=== PATIENT | male | born 1990 | race African-American/Black ===

== ENCOUNTER 2016-09-03 20:53 | Emergency (ER) | payer MEDICAID ==
[2016-09-03 21:09] VITALS: BP 131/92
--- NOTE | 2016-09-03 21:13 | EDM.PDOC ---
ED HPI GENERAL MEDICAL PROBLEM - General Chief Complaint: Genitourinary Problem Stated Complaint: POSS STD INFECTION Time Seen by Provider: 09/03/16 21:13 Source of Information: Reports: Patient History Limitations: Reports: No Limitations - History of Present Illness INITIAL COMMENTS - FREE TEXT/NARRATIVE: 24-year-old male presents the ED with pain in the shaft and glans penis. She had intercourse with a woman about a week ago. States quite a bit of chafing occurred during intercourse and he had pain in this area since that time. Pain however is getting worse and tonight he noticed pain in the urethral meatus with voiding. Certainly may have picked up an STD. He is circumcised. Initial intercourse was last August 25 he feels that the initial chafing and irritation may not have healed and was aggravated by second intercourse. Today he developed more urethritis discomfort and cloudy looking urine.. Second intercourse was August 30. Onset: Gradual Onset Date: 08/26/16 (InitiaInitial onset of sores on penis.) Duration: Day(s):, Constant, Getting Worse Location: Reports: Other Quality: Reports: Burning, Stabbing Severity: Mild Improves with: Reports: None Worsens with: Reports: Other Context: Reports: Activity (Recurrent intercourse). Denies: Exercise, Lifting, Sick Contact, Trauma, Other Associated Symptoms: Reports: Other (Today develop some mild burning with voiding. Note the urine was slightly cloudy as well.) Treatments DIET KITCHEN COOK: Reports: Other (see below) (None.) Penis Pain Score (Numeric/FACES): 6 - Related Data Allergies Allergy/AdvReac Type Severity Reaction Status Date / Time diphenhydramine Allergy Rash Verified 09/03/16 21:09 [From Benadryl] Home Meds: Home Meds Azithromycin [Zithromax] 1 gm PO DAILY #1 packet 09/03/16 [Rx] Doxycycline [Vibramycin] 100 mg PO Q12HR #20 cap 09/03/16 [Rx] Mupirocin Oint [Bactroban Oint] 22 gm TOP BID #1 tube 09/03/16 [Rx] Past Medical History - Past Health History Medical/Surgical History: Denies Medical/Surgical History Social & Family History - Tobacco Use Smoking Status *Q: Never Smoker Second Hand Smoke Exposure: No - Caffeine Use Caffeine Use: Reports: Soda - Alcohol Use Days Per Week of Alcohol Use: 3 Number of Drinks Per Day: 4 Total Drinks Per Week: 12 - Recreational Drug Use Recreational Drug Use: No - Living Situation & Occupation Living situation: Reports: Single Occupation: Employed ED ROS GENERAL - Review of Systems Review Of Systems: See Below Constitutional: Reports: No Symptoms HEENT: Reports: No Symptoms Respiratory: Reports: No Symptoms Cardiovascular: Reports: No Symptoms Endocrine: Reports: No Symptoms GI/Abdominal: Reports: No Symptoms : Reports: Other (Mild dysuria and discomfort in the urethral meatus. Sores on the shaft of the distal penis.) Musculoskeletal: Reports: No Symptoms Neurological: Reports: No Symptoms ED EXAM, RENAL/ - Physical Exam Exam: See Below Exam Limited By: No Limitations General Appearance: Alert, WD/WN, No Apparent Distress (Male) Exam: Other (Patient does have cloudy looking urine with slight irritation of the urethral meatus. The glans of the penis is normal. The shaft of the distal penis dorsally particularly has 3 or 4 lesions which I believe are probably teeth blandon or waking from teeth. Do not resemble chancroid or syphilis. They're mildly tender. There is no cellulitis.) Course - Vital Signs Last Recorded V/S: Last Vital Signs Temp 37.2 C 09/03/16 21:03 Pulse 85 09/03/16 21:03 Resp 16 09/03/16 21:03 BP 131/92 H 09/03/16 21:03 Pulse Ox 98 09/03/16 21:03 - Orders/Labs/Meds Labs: Laboratory Tests 09/03/16 Range/Units 21:25 C trachomatis DNA (PCR) Not detected N gonorrhoeae DNA (PCR) Not detected - Radiology Interpretation Free Text/Narrative:: 25-year-old male presents the ED with some mild dysuria and early urethritis after sexual intercourse with a essentially new girlfriend. He's been with her twice in the last week. Developed sores on the shaft of his penis which she relates was secondary to vaginal dryness and chafing of the penis. Worse after second intercourse 4 days ago. The sores are not expanding in size and there is no discharge. Developed a urethritis-like symptoms with some dysuria tonight. He looking urine noted. Plan urine to be collected for chlamydia and gonorrhea check. And urinalysis. I will place him on antibiotic doxycycline 100 mg twice daily for 10 days to clear up chlamydia and 1 g of azithromycin for gonorrhea clear. Phone the patient with results once his urinalysis becomes available. The nail shaft will have fast Trabant ointment applied to twice daily until the source heal. I believe the sores are secondary to waking from teeth during oral intercourse. - Re-Assessments/Exams Free Text/Narrative Re-Assessment/Exam: 09/04/16 00:21 urine tested for gonorrhea and chlamydia is negative. Patient was found and formed of the results. Departure - Departure Time of Disposition: 21:36 Disposition: Home, Self-Care 01 Condition: Fair Clinical Impression: Urethritis, Wound infection - Discharge Information Prescriptions: Doxycycline [Vibramycin] 100 mg PO Q12HR #20 cap Azithromycin [Zithromax] 1 gm PO DAILY #1 packet Mupirocin Oint [Bactroban Oint] 22 gm TOP BID #1 tube Referrals: PCP,None [Primary Care Provider] - Forms: ED Department Discharge Additional Instructions: Evaluation in the emergency room today in regards to skin sores that have developed on the shaft of the glans penis. These appear to be secondarily infected wounds either from skin chafing or teeth raking. There also appears to be a development of urethritis which means slight irritation when voiding at the end of the penis suggestive of developing infection. Urine has been collected for analysis including gonorrhea and chlamydia and I will call you with results when this becomes available. In the meantime suggest treatment with doxycycline 100 mg twice daily for 10 days and Zithromax 1 g taken once to clear up any potential infections. Suggest use of Bactroban ointment to the affected area of the glans penis twice daily morning and bedtime until the rash clears should be much improved in 4-5 days. Follow-up if not markedly improved in that timeframe.
[2016-09-03 23:13] LABS: C. TRACHOMATIS BY PCR NOT DETECTED; N. GONORRHOEAE BY PCR NOT DETECTED
== END 2016-09-03 22:09 | disposition home or self-care (01) ==
LOC: JD.ED 20:53
DX: N34.2 Other urethritis (principal); N48.29 Other inflammatory disorders of penis; Z79.2 Long term (current) use of antibiotics; Z88.8 Allergy status to other drugs, medicaments and biological substances
CPT/HCPCS: 87491; 87591; 99283

== ENCOUNTER 2016-11-20 14:51 | Emergency (ER) | payer MEDICAID ==
[2016-11-20 15:07] VITALS: BP 126/70
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
== END 2016-11-20 15:47 | disposition home or self-care (01) ==
LOC: JD.ED 14:51
DX: S06.0X0A Concussion without loss of consciousness, initial encounter (principal); S39.012A Strain of muscle, fascia and tendon of lower back, initial encounter; Z88.8 Allergy status to other drugs, medicaments and biological substances; V43.52XA Car driver injured in collision with other type car in traffic accident, initial encounter
CPT/HCPCS: 99283; 99284

== ENCOUNTER 2017-06-17 10:18 | Emergency (ER) | payer SELFPAY ==
--- NOTE | 2017-06-17 10:39 | EDM.PDOC ---
ED HPI GENERAL MEDICAL PROBLEM - General Chief Complaint: Abdominal Pain Stated Complaint: ABDOMINAL PAIN/VOMITING Time Seen by Provider: 06/17/17 10:38 Source of Information: Reports: Patient - History of Present Illness INITIAL COMMENTS - FREE TEXT/NARRATIVE: Patient is here for evaluation of abdominal pain that started on Tuesday. He states that he thought maybe he was constipated, he took MiraLAX and has had good bowel movements but not relief in the pain/fullness. Patient states that approximately 2am this morning he started with the nausea, vomiting and diarrhea simultaneously. Patient has no chronic medical conditions, no history of GI problems. Prior to early this morning he had been eating adequately. He had been doing some intermittent fasting for 16-18 hours daily for health reasons. He has been trying to drink fluids but feels that he is "not keeping up" with the diarrhea and vomiting. Denies any exposure to ill contacts specifically, though he works at the front end architect of a hotel and is in contact with many people every day. He has not traveled recently. Patient takes alcohol occasionally on a social basis. He is not a smoker. He denies any history of drug use. Abdominal Pain Score (Numeric/FACES): 8 - Related Data Allergies Allergy/AdvReac Type Severity Reaction Status Date / Time diphenhydramine Allergy Rash Verified 06/17/17 10:37 [From Benadryl] Home Meds: Home Meds Ondansetron HCl [Zofran] 4 mg PO Q8HR PRN #10 tablet 06/17/17 [Rx] Past Medical History - Past Health History Medical/Surgical History: Denies Medical/Surgical History Social & Family History - Tobacco Use Smoking Status *Q: Never Smoker Second Hand Smoke Exposure: No - Caffeine Use Caffeine Use: Reports: Soda - Alcohol Use Days Per Week of Alcohol Use: 3 Number of Drinks Per Day: 4 Total Drinks Per Week: 12 - Recreational Drug Use Recreational Drug Use: No - Living Situation & Occupation Living situation: Reports: Single Occupation: Employed ED ROS GENERAL - Review of Systems Review Of Systems: See Below Constitutional: Reports: Malaise, Weakness, Fatigue, Decreased Appetite. Denies : Fever, Chills HEENT: Reports: No Symptoms Respiratory: Reports: No Symptoms Cardiovascular: Reports: No Symptoms Endocrine: Reports: Fatigue GI/Abdominal: Reports: Abdominal Pain, Diarrhea, Decreased Appetite, Nausea, Vomiting. Denies: Hematemesis, Hematochezia : Reports: No Symptoms Musculoskeletal: Reports: No Symptoms Skin: Reports: No Symptoms Neurological: Reports: No Symptoms ED EXAM, GI/ABD - Physical Exam Exam: See Below General Appearance: Alert, WD/WN, No Apparent Distress Eyes: Bilateral: Normal Appearance Ears: Normal External Exam, Normal Canal, Normal TMs Throat/Mouth: Normal Inspection, Normal Oropharynx Head: Atraumatic, Normocephalic Neck: Normal Inspection, Supple, Non-Tender Respiratory/Chest: No Respiratory Distress, Lungs Clear, Normal Breath Sounds Cardiovascular: Normal Peripheral Pulses, Regular Rate, Rhythm, No Murmur GI/Abdominal Exam: Soft, Tender (Epigastric), Abnormal Bowel Sounds ( Hyperactive ). No: Guarding, Rigid, Rebound Neurological: Alert, Oriented Psychiatric: Normal Affect, Normal Mood Skin Exam: Warm, Dry, Intact Lymphatic: No Adenopathy Course - Vital Signs Last Recorded V/S: Last Vital Signs Temp 97.9 F 06/17/17 10:40 Pulse 84 06/17/17 10:40 Resp 18 06/17/17 10:40 BP 130/80 06/17/17 10:40 Pulse Ox 98 06/17/17 10:40 - Orders/Labs/Meds Orders: Active Orders 24 hr Category Date Time Status Abdomen 2V AP Flat Upright [CR] Stat Exams 06/17/17 12:07 Taken UA W/MICROSCOPIC [URIN] Stat Lab 06/17/17 11:23 Ordered Labs: Laboratory Tests 06/17/17 06/17/17 06/17/17 Range/Units 10:35 10:35 10:35 WBC 7.13 (4.23-9.07) K/mm3 RBC 5.70 (4.63-6.08) M/mm3 Hgb 16.3 (13.7-17.5) gm/L Hct 48.3 (40.1-51.0) % MCV 84.7 (79.0-92.2) fl MCH 28.6 (25.7-32.2) pg MCHC 33.7 (32.2-35.5) g/dl RDW Std Deviation 39.2 (35.1-43.9) fL Plt Count 207 (163-337) K/mm3 MPV 10.3 (9.4-12.3) fl Neutrophils % (Manual) 66 H (40-60) % Band Neutrophils % 2 (0-10) % Lymphocytes % (Manual) 31 (20-40) % Atypical Lymphs % 0 % Monocytes % (Manual) 0 L (2-10) % Eosinophils % (Manual) 1 (0.8-7.0) % Basophils % (Manual) 0 L (0.2-1.2) Platelet Estimate Adequate RBC Morph Comment Normal Sodium 139 (136-145) mEq/L Potassium 3.7 (3.5-5.1) mEq/L Chloride 102 (98-107) mEq/L Carbon Dioxide 28 (21-32) mEq/L Anion Gap 12.7 (5-15) BUN 16 (7-18) mg/dL Creatinine 1.1 (0.7-1.3) mg/dL Est Cr Clr Drug Dosing 123.76 mL/min Estimated GFR (MDRD) > 60 (>60) mL/min BUN/Creatinine Ratio 14.5 (14-18) Glucose 107 H (74-106) mg/dL Calcium 9.7 (8.5-10.1) mg/dL Total Bilirubin 3.0 H (0.2-1.0) mg/dL Direct Bilirubin 0.20 (0.0-0.2) mg/dl AST 18 (15-37) U/L ALT 14 L (16-63) U/L Alkaline Phosphatase 75 (46-116) U/L C-Reactive Protein 1.8 H* (<1.0) mg/dL Total Protein 8.1 (6.4-8.2) g/dl Albumin 4.5 (3.4-5.0) g/dl Globulin 3.6 gm/dL Albumin/Globulin Ratio 1.3 (1-2) Lipase 97 (73-393) U/L Meds: Medications Discontinued Medications Generic Name Dose Route Start Last Admin Trade Name Freq PRN Reason Stop Dose Admin Al Hydroxide/Mg Hydroxide 30 0 ml 06/17/17 12:07 06/17/17 12:13 ml/ Lidocaine HCl 15 ml PO 06/17/17 12:08 45 ml ONETIME ONE Administration Sodium Chloride 1,000 mls @ 999 mls/hr 06/17/17 11:24 06/17/17 11:33 Normal Saline IV 06/17/17 12:24 999 mls/hr ONETIME ONE Administration Ketorolac Tromethamine 30 mg 06/17/17 11:41 06/17/17 11:51 Toradol IVPUSH 06/17/17 11:42 30 mg ONETIME ONE Administration Metoclopramide HCl 5 mg 06/17/17 11:41 06/17/17 11:47 Reglan IVPUSH 06/17/17 11:42 5 mg ONETIME ONE Administration Ondansetron HCl 4 mg 06/17/17 11:24 06/17/17 11:33 Zofran IVPUSH 06/17/17 11:25 4 mg ONETIME ONE Administration - Re-Assessments/Exams Free Text/Narrative Re-Assessment/Exam: Patient is afebrile, mild abdominal tenderness. He is able to laugh and joke but does appear uncomfortable. Lab work ordered and will get a liter of NS started. Zofran for nausea. Patient still having some abdominal pain/nausea will give 30 mg Toradol & 5 mg Reglan. 06/17/17 11:42 Bilirubin is elevated to 3.0, will fractionate this out. Patient still having some abdominal pain will try GI cocktail and get an x-ray of the abdomen. 06/17/17 12:07 Pain improved with GI cocktail. WBC 7130, CRP is 1.8. Bilirubin elevated at 3.0 liver enzymes are normal and lipase is 97. Likely viral gastroenteritis, will discharge him home with Zofran to use as needed. He is to push fluids. Very bland diet. He'll follow-up with PCP if symptoms not improved over the next 3 days or certainly return to the emergency room if any worsening. 06/17/17 12:58 06/17/17 12:59 Departure - Departure Time of Disposition: 13:00 Disposition: Home, Self-Care 01 Condition: Good Clinical Impression: Gastroenteritis - Discharge Information Prescriptions: Ondansetron HCl [Zofran] 4 mg PO Q8HR PRN #10 tablet PRN Reason: Nausea Referrals: Gladys Coleman NOC ENGINEER [Primary Care Provider] - Forms: ED Department Discharge Additional Instructions: You were evaluated in the emergency room and diagnosed with a viral gastroenteritis. You will be discharged home with Zofran to use for nausea as needed You need to push oral fluids and stay hydrated. Try to avoid eating today, as you feel better you may advance diet. Avoid sugar/ dairy until symptoms completely resolved. Follow-up with your primary provider if her symptoms are not improved over the next 3 days or if any worsening you may certainly return to the emergency room - My Orders Last 24 Hours: My Active Orders 06/17/17 11:23 UA W/MICROSCOPIC [URIN] Stat 06/17/17 12:07 Abdomen 2V AP Flat Upright [CR] Stat - Assessment/Plan Last 24 Hours: My Active Orders 06/17/17 11:23 UA W/MICROSCOPIC [URIN] Stat 06/17/17 12:07 Abdomen 2V AP Flat Upright [CR] Stat
[2017-06-17 10:43] VITALS: BP 130/80
[2017-06-17] MEDS ORDERED: Ondansetron 4 MG/2 ML SDV IVPUSH ONE (11:24)
[2017-06-17] MEDS ORDERED: Sodium Chloride 0.9% 1,000 ML IV ONE (11:24)
[2017-06-17] MEDS ORDERED: Ketorolac 30 MG/ML SDV IVPUSH ONE (11:41)
[2017-06-17] MEDS ORDERED: Metoclopramide 10 MG/2 ML SDV IVPUSH ONE (11:41)
[2017-06-17] MEDS ORDERED: Alum Hydrox/Mag Hydrox/Simeth 30 ML, Lidocaine 2% 15 ML PO ONE ×2 (12:07)
--- NOTE | 2017-06-17 13:12 | CR ---
Abdomen: Supine and upright views of the abdomen were obtained. Comparison: Previous abdominal x-ray of 11/19/14. Bowel gas pattern appears normal. Calcifications are seen within the pelvis compatible with phleboliths. No free air is seen. Bony structures are unremarkable. Impression: 1. Incidental finding. Nothing acute is seen on two-view abdominal x-ray. Diagnostic code #2
== END 2017-06-17 14:00 | disposition home or self-care (01) ==
LOC: JD.ED 10:18
DX: K52.9 Noninfective gastroenteritis and colitis, unspecified (principal); Z88.8 Allergy status to other drugs, medicaments and biological substances
CPT/HCPCS: 36415; 74019; 80053; 81001; 82248; 83690; 85025; 86140; 96361; 96374; 96375; 99284; A9270; J1885; J2405; J2765; J7040

== ENCOUNTER 2019-07-05 00:55 | Emergency (ER) | payer MEDICAID, OTHER ==
[2019-07-05 01:09] VITALS: BP 145/87; PULSE 75
--- NOTE | 2019-07-05 01:40 | EDM.PDOC ---
ED HPI GENERAL MEDICAL PROBLEM - General Chief Complaint: Back Pain or Injury Stated Complaint: SEVERE BACK BACK NUMBNESS TO FEET AND HANDS Time Seen by Provider: 07/05/19 01:20 - History of Present Illness INITIAL COMMENTS - FREE TEXT/NARRATIVE: 28-year-old male presents the emergency room with back pain. 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 He gets intermittent numbness in his legs. No loss of bowel or bladder control at times he gets some numbness around his abdomen. I have no good explanation for this. Other than potential thoracic nerve entrapment. Patient denies any loss of bowel or bladder control patient has not had any recent injuries to his back. Patient basically states sometimes his back pain flares up and keeps him from sleeping at night and causes him other discomforts through the day and this is 1 of those times his back is acted like this many times in the past. Treatments DATA ANALYST REPORT WRITER: Reports: Acetaminophen Lower Back Pain Score (Numeric/FACES): 8 - Related Data Allergies Allergy/AdvReac Type Severity Reaction Status Date / Time diphenhydramine Allergy Rash Verified 07/05/19 01:16 [From Benadryl] Home Meds: Home Meds traMADol [Ultram] 50 mg PO Q6H PRN #20 tab #20 Samples 07/05/19 [Rx] Past Medical History - Past Health History Medical/Surgical History: Denies Medical/Surgical History Social & Family History - Tobacco Use Smoking Status *Q: Never Smoker - Caffeine Use Caffeine Use: Reports: Soda - Recreational Drug Use Recreational Drug Use: No - Living Situation & Occupation Living situation: Reports: Single Occupation: Employed ED ROS GENERAL - Review of Systems Review Of Systems: See Below Constitutional: Reports: No Symptoms HEENT: Reports: No Symptoms Respiratory: Reports: No Symptoms Cardiovascular: Reports: No Symptoms GI/Abdominal: Reports: No Symptoms Musculoskeletal: Reports: Back Pain Neurological: Reports: Other (Remittent numbness in his abdominal wall and lower extremities) ED EXAM, UPPER BACK/NECK PAIN - Physical Exam Exam: See Below Exam Limited By: No Limitations General Appearance: Alert, No Apparent Distress Head Exam: Atraumatic, Normocephalic Neck Exam: Non-Tender, Full Range of Motion, Normal Alignment, Normal Inspection. No: Spinous Processes Tender, Tenderness Cardiovascular/Respiratory: Regular Rate, Rhythm, No M/R/G, Normal Peripheral Pulses, Normal Breath Sounds, No Respiratory Distress GI/Abdominal: Normal Bowel Sounds, Soft, Non-Tender, Other (Had a umbilical hernia repair in the past) Back Exam: Normal Inspection, Other (Is an extra bone in the lower lumbar area on the right). No: Vertebral Tenderness Extremities: Normal Inspection, No Pedal Edema, Other (Straight leg raises are essentially normal) Course - Vital Signs Last Recorded V/S: Last Vital Signs Temp 36.9 C 07/05/19 01:08 Pulse 75 07/05/19 01:08 Resp 18 07/05/19 01:08 BP 145/87 H 07/05/19 01:08 Pulse Ox 99 07/05/19 01:08 - Re-Assessments/Exams Free Text/Narrative Re-Assessment/Exam: 07/05/19 01:57 We will give the patient some tramadol as this is what is worked well for him in the past I have explained to the patient that this is not a good place to get chronic pain medications and he understands this. Patient is to follow-up with his regular physician, Dr. Turner, ration treatment consider imaging if necessary Departure - Departure Time of Disposition: 01:57 Disposition: Home, Self-Care 01 Clinical Impression: Chronic back pain - Discharge Information Referrals: Michael Turner Jr, MD [Primary Care Provider] - Additional Instructions: Return to the emergency room with any questions problems or worsening symptoms. Follow-up with your regular physician this next week. Discuss if further images need to be obtained. Consider physical therapy. You have been given a prescription for tramadol use only as needed. Allow 12 hours after using this medication before driving or returning to work Sepsis Event Note - Evaluation Sepsis Screening Result: No Definite Risk - Focused Exam Vital Signs: Vital Signs Temp Pulse Resp BP Pulse Ox 07/05/19 01:08 36.9 C 75 18 145/87 H 99 Date Exam was Performed: 07/05/19 Time Exam was Performed: 01:29
[2019-07-05] MEDS ORDERED: traMADol 50 MG Tab PO ONE (01:47)
== END 2019-07-05 02:05 | disposition home or self-care (01) ==
LOC: JD.ED 00:55
DX: G89.29 Other chronic pain (principal); M54.5 Low back pain; Z88.8 Allergy status to other drugs, medicaments and biological substances
CPT/HCPCS: 99283; A9270

== ENCOUNTER 2020-12-23 14:20 | Emergency (ER) | payer OTHER, MEDICAID ==
[2020-12-23 14:57] VITALS: BP 127/91; PULSE 85
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
== END 2020-12-23 16:37 | disposition home or self-care (01) ==
LOC: JD.ED 14:20
DX: S39.012A Strain of muscle, fascia and tendon of lower back, initial encounter (principal); Z88.8 Allergy status to other drugs, medicaments and biological substances; V89.2XXA Person injured in unspecified motor-vehicle accident, traffic, initial encounter
CPT/HCPCS: 99283

== ENCOUNTER 2021-05-06 07:09 | Emergency (ER) | payer MEDICAID, OTHER ==
[2021-05-06 07:43] VITALS: BP 140/96; PULSE 74
[2021-05-06 08:40] LABS: ACETAMINOPHEN 0 ug/mL (10-30)
== END 2021-05-06 11:26 ==
LOC: JD.ED 07:09
DX: F22 Delusional disorders (principal); Z88.8 Allergy status to other drugs, medicaments and biological substances; Z20.822 Contact with and (suspected) exposure to COVID-19
CPT/HCPCS: 36415; 80053; 80143; 80179; 80306; 80307; 84443; 85025; 93005; 93010; 99285; 99285-25; U0002